=== PATIENT | female | born 1975 | race Caucasian/White ===

== ENCOUNTER → 2016-08-20 | Outpatient (CLI) | payer OTHER ==
[~2016-08-20] MED LIST: IBUP-232 PO
== END ==
LOC: HPND 08:37
PROVIDERS: ATTEND Obstetrics & Gynecology
DX: O09.511 Supervision of elderly primigravida, first trimester (principal); O35.1XX0 Maternal care for (suspected) chromosomal abnormality in fetus, not applicable or unspecified
CPT/HCPCS: 76811

== ENCOUNTER → 2016-09-17 | Outpatient (CLI) | payer OTHER | LOC: HPND 08:45 | PROVIDERS: ATTEND Obstetrics & Gynecology | DX: O09.512 Supervision of elderly primigravida, second trimester (principal); O35.1XX0 Maternal care for (suspected) chromosomal abnormality in fetus, not applicable or unspecified; Z3A.22 22 weeks gestation of pregnancy | CPT/HCPCS: 76816; 76825; 76827; 93325 ==

== ENCOUNTER 2017-01-17 16:58 | Inpatient (IN) | payer OTHER ==
[2017-01-17] VITALS (8 sets, daily range): BP systolic 124–126; BP diastolic 65–70; PULSE 89; RESP 16–18; TEMP 97.8–98.7
[2017-01-17 18:09] LABS: AUTOMATED NEUTROPHIL # 8.6 TH/MM3 (1.8-7.7); BASOPHIL % 0.3 % (0.0-2.0); EOSINOPHIL # 0.2 TH/MM3 (0-0.4); EOSINOPHIL % 2.1 % (0.0-4.0); HEMATOCRIT 37.6 % (35.0-46.0); HEMO FLAGS DIFF FINAL; LYMPH % 17.2 % (9.0-44.0); MEAN CELL VOLUME 90.6 FL (80.0-100.0); MEAN CORPUSCULAR HEMOGLOBIN 30.4 PG (27.0-34.0); MEAN CORPUSCULAR HGB CONC 33.6 % (32.0-36.0); MONO % 5.5 % (0.0-8.0); NEUT % 74.9 % (16.0-70.0); PLATELET COUNT 293 TH/MM3 (150-450); RED BLOOD COUNT 4.15 MIL/MM3 (4.00-5.30); RED CELL DISTRIBUTION WIDTH 13.3 % (11.6-17.2); WHITE BLOOD COUNT 11.5 TH/MM3 (4.0-11.0)
[2017-01-17 18:12] LABS: BLOOD, URINE NEG (NEG); COMMENT (UR) CULT NOT INDICATED; CULTURE IF INDICATED CULT NOT INDICATED; GLUCOSE,URINE NEG (NEG); HYALINE CAST, URINE 1 /lpf (RARE); KETONE, URINE NEG (NEG); NITRITE,URINE NEG (NEG); SQUAMOUS EPITHELIAL CELL URINE 5 /hpf (0-5); URINE COLOR LIGHT-YELLOW (YELLW/STRAW)
[2017-01-17] MEDS ORDERED: LACTATED RINGER'S 1000 ML BOLUS IV PRN (18:15)
[2017-01-17] MEDS ORDERED: NS 500 ML BOLUS IV PRN (18:15)
[2017-01-17] MEDS ORDERED: CITRIC ACID-SODIUM CITRATE LIQ 30 ML UDC PO SCH (18:15)
[2017-01-17] MEDS ORDERED: MINERAL OIL 10 ML VIAL TOPICAL PRN (18:15)
[2017-01-17] MEDS ORDERED: OXYTOCIN 30 UNITS 500ML PREMIX IV ONE (18:15)
[2017-01-17] MEDS ORDERED: NS 1000 ML IV PRN (18:15)
[2017-01-17] MEDS ORDERED: LIDOCAINE HCL 1% 50 ML VIAL I-DERMAL PRN (18:15)
[2017-01-17] MEDS ORDERED: LIDOCAINE HCL 1% 50 ML VIAL INFIL PRN (18:15)
[2017-01-17] MEDS: LACTATED RINGER'S 1000 ML IV SCH (18:17)
[2017-01-17] MEDS ORDERED: DINOPROSTONE 10 MG INSERT - REMOVE AT 0600 VAGINAL ONE (19:00)
[2017-01-17] MEDS ORDERED: LACTATED RINGER'S 1000 ML INJ 1,000 ML IV SCH (19:00)
[2017-01-18] VITALS (51 sets, daily range): BP systolic 98–138; BP diastolic 47–97; PULSE 77–132; RESP 16–20; TEMP 97.8–98.7; O2SAT 97–100
[2017-01-18] MEDS: LACTATED RINGER'S 1000 ML IV SCH ×3 (03:16→18:15)
[2017-01-18] MEDS ORDERED: OXYTOCIN 30 UNITS/NS 500ML PREMIX IV SCH (06:30)
[2017-01-18] MEDS ORDERED: ePHEDrine/NS 25 MG/5 ML SYR ONE (10:27)
[2017-01-18] MEDS ORDERED: fentaNYL 2MCG-BUPIV 0.125% INJ 100 ML ONE (10:27)
--- NOTE | 2017-01-18 10:32 | PD.LABORPN ---
Subjective Subjective pt uncomfortable with contractions. Objective Vital Signs Vital Signs Date Time Temp Pulse Resp B/P Pulse Ox O2 Delivery O2 Flow Rate FiO2 01/18/17 10:01 77 120/57 01/18/17 09:31 79 102/52 01/18/17 09:15 78 119/60 01/18/17 09:10 94 103/49 01/18/17 08:01 91 138/70 01/18/17 07:41 80 128/60 01/18/17 07:39 83 125/70 01/18/17 07:15 93 116/56 01/18/17 06:53 91 01/18/17 06:53 121/61 01/18/17 06:38 98.7 20 01/18/17 04:30 18 01/18/17 03:43 18 Objective Pelvic Exam: Cervix: [-] Dilatation: [-] 3 Effacement: [-] 90 Station: [-] -2 Presentation: [-] vtx Membranes: [ ruptured] Uterine Contractions: [-] FHT's: Category: [-] 1 Baseline: [-] 140s Reactive: [-] yes Variability: [-] Decels: [-] Assessment/Plan Problem List: (1) Plan: AROM cont pit GBS neg for epidural Ai Welch MD Jan 18, 2017 10:32
[2017-01-18] MEDS ORDERED: PANTOPRAZOLE SODIUM 40 MG VIAL IV PUSH ONE (14:00)
[2017-01-18] MEDS ORDERED: WITCH HAZEL 50%/GLYCERIN 12.5% 40 PAD JAR TOPICAL PRN (16:00)
[2017-01-18] MEDS ORDERED: ACETAMINOPHEN 325 MG TAB PO PRN (16:00)
[2017-01-18] MEDS ORDERED: ALUMINUM/MAGNESIUM/SIMETH 30 ML CUP PO PRN (16:00)
[2017-01-18] MEDS ORDERED: BENZOCAINE 20% TOPICAL SPRAY 60 ML CAN TOPICAL PRN (16:00)
[2017-01-18] MEDS ORDERED: SODIUM CHLORIDE 0.9% FLUSH 10 ML FLUSH IV FLUSH PRN (16:00)
[2017-01-18] MEDS ORDERED: OXYTOCIN 10 UNIT/ML AMP XX PRN (16:00)
[2017-01-18] MEDS ORDERED: DIPHTH/TETANUS/ACEL PERTUSSIS (BOOSTER) 0.5 ML VIAL/PFS IM ONE (16:00)
[2017-01-18] MEDS ORDERED: ZOLPIDEM TARTRATE 5 MG TAB PO PRN (16:00)
[2017-01-18] MEDS ORDERED: oxyCODONE/ACETAMINOPHEN 5 MG/325 MG TAB PO PRN ×2 (16:00)
[2017-01-18] MEDS ORDERED: OXYTOCIN 30 UNITS-500ML PREMIX 500 ML IV ONE (16:00)
[2017-01-18] MEDS ORDERED: ONDANSETRON ODT 4 MG TAB PO PRN (16:00)
[2017-01-18] MEDS ORDERED: traMADol HCL 50 MG TAB PO PRN (16:00)
[2017-01-18] MEDS ORDERED: MEASLES, MUMPS, RUBELLA VACCINE 0.5 ML VIAL SQ ONE (16:00)
--- NOTE | 2017-01-18 16:02 | PD.OB.DELI ---
Delivery Date: Jan 18, 2017 Anesthesia: Epidural Episiotomy: None Vaginal Delivery: Normal, Spontaneous Presentation: Occiput anterior Nuchal Cord: x1 Delayed cord clamping (45 sec): Yes Infant: Male One Minute : 8 Five Minute : 9 Weight: 7-13 Placenta: Spontaneous delivery, Intact, 3 vessel cord Laceration: Perineal laceration, 2 deg (repaired with 2-0 chromic in usual fashion) Ai Welch MD Jan 18, 2017 16:01
[2017-01-18] MEDS ORDERED: SODIUM CHLORIDE 0.9% FLUSH 10 ML FLUSH IV FLUSH SCH (21:00)
[2017-01-19] MEDS: DOCUSATE SODIUM 50 MG/SENNA 8.6 MG TAB PO PRN (03:16)
[2017-01-19] MEDS: IBUPROFEN 600 MG TAB PO PRN ×4 (03:17→22:39)
[2017-01-19 04:00] VITALS: PULSE 96; RESP 18
[2017-01-19] MEDS: LACTATED RINGER'S 1000 ML IV SCH (07:17)
[2017-01-19 08:50] VITALS: BP 113/72; PULSE 89; RESP 20; TEMP 97.9
--- NOTE | 2017-01-19 11:44 | HHI.OB ---
Subjective Post Day: 1 Remarks pain controlled, mod lochia, emmanuel po, +void/flatus Objective Vitals/I&O Vital Signs Date Time Temp Pulse Resp B/P Pulse Ox O2 Delivery O2 Flow Rate FiO2 01/19/17 08:50 97.9 89 20 113/72 01/19/17 04:00 96 18 01/18/17 23:52 16 01/18/17 20:00 98.5 116 20 126/80 01/18/17 18:10 98.3 110 18 101/80 01/18/17 17:15 97.8 18 01/18/17 17:01 97 114/93 01/18/17 17:00 109 18 01/18/17 17:00 109 01/18/17 16:46 122 111/79 01/18/17 16:35 20 01/18/17 16:32 100 01/18/17 16:32 100 99/52 01/18/17 16:30 18 01/18/17 16:16 105 01/18/17 16:16 132 111/73 01/18/17 16:07 98.3 01/18/17 16:01 18 01/18/17 16:00 99 115/97 01/18/17 15:45 18 01/18/17 15:31 106 113/62 01/18/17 15:01 95 121/59 01/18/17 14:48 98.1 01/18/17 14:31 90 121/67 01/18/17 14:10 115 105/49 01/18/17 13:31 100 117/77 01/18/17 13:01 97.9 18 01/18/17 13:01 109 98/57 01/18/17 12:31 112 115/48 01/18/17 12:23 16 01/18/17 12:05 18 01/18/17 12:01 108 137/90 Objective Remarks GENERAL: Well-nourished, well-developed patient. CARDIOVASCULAR: Regular rate and rhythm without murmurs, gallops, or rubs. RESPIRATORY: Breath sounds equal bilaterally. No accessory muscle use. ABDOMEN/GI: Abdomen soft, non-tender. Fundus: Firm, non-tender at umbilicus. GENITOURINARY: Light to moderate bleeding. EXTREMITIES: No cyanosis or edema, non-tender, without signs of DVT. Medications and IVs Current Medications Medications (Trade) Dose Ordered Sig/Lori Route Start Time Stop Time Status Last Admin Lactated Ringer's 1,000 ml @ 125 mls/hr Q8H IV 01/17/17 18:15 01/18/17 10:41 Lactated Ringer's 1,000 ml @ 3,000 mls/hr BOLUS PRN IV 01/17/17 18:15 Sodium Chloride 500 ml @ 1,000 mls/hr BOLUS PRN IV 01/17/17 18:15 01/18/17 06:57 (NS 1000 ml Inj) 1,000 ml @ 100 mls/hr Q10H PRN IV 01/17/17 18:15 (fentaNYL INJ) 50 mcg Q1H PRN IV PUSH 01/17/17 18:15 01/17/17 18:17 (fentaNYL INJ) 100 mcg Q1H PRN IV PUSH 01/17/17 18:15 01/18/17 10:00 Mineral Oil 10 ml 10 ml UNSCH PRN TOPICAL 01/17/17 18:15 (Pitocin 30 Units-NS 500 ml Premix) 500 ml @ 0 mls/hr TITRATE IV 01/18/17 06:30 (NS Flush) 2 ml BID IV FLUSH 01/18/17 21:00 (NS Flush) 2 ml UNSCH PRN IV FLUSH 01/18/17 16:00 (Tylenol) 650 mg Q4H PRN PO 01/18/17 16:00 (Motrin) 600 mg Q6H PRN PO 01/18/17 16:00 01/19/17 10:15 (Percocet 5-325 Mg) 1 tab Q4H PRN PO 01/18/17 16:00 (Percocet 5-325 Mg) 2 tab Q4H PRN PO 01/18/17 16:00 (Americaine 20% Top Spr) 1 spray Q4H PRN TOPICAL 01/18/17 16:00 01/18/17 18:24 (Tucks Pads) 1 applic QID PRN TOPICAL 01/18/17 16:00 01/18/17 18:24 (Sophie-Colace) 2 tab Q12H PRN PO 01/18/17 16:00 01/19/17 03:16 (Ambien) 5 mg HS PRN PO 01/18/17 16:00 (Mag-Al Plus Susp Liq) 15 ml Q8H PRN PO 01/18/17 16:00 (Zofran Odt) 4 mg Q6H PRN PO 01/18/17 16:00 (Ultram) 50 mg Q4H PRN PO 01/18/17 16:00 Assessment/Plan Problem List: (1) Spontaneous vaginal delivery Plan: routine pp care d/c home in Ai Andujar MD Jan 19, 2017 11:44
[2017-01-19] MEDS ORDERED: IBUP-232 PO (11:47)
--- NOTE | 2017-01-19 11:48 | HHI.DCPOC ---
Discharge Care Plan Diagnosis: (1) Spontaneous vaginal delivery Your Health Problems Are: Vaginal delivery Report Symptoms to Your Doctor -Temperature above 100.5 degrees -Redness, of incision or excessive or foul smelling drainage -Unusual pain or calf pain -Increased vaginal bleeding -Painful or difficulty urinating -Feelings of extreme sadness or anxiety after 2 weeks Goals to Promote Your Health * To prevent worsening of your condition and complications * To maintain your health at the optimal level Directions to Meet Your Goals Take your medications as prescribed Follow your dietary instruction Follow activity as directed Ensure plenty of rest for recovery Drink fluids for hydration Keep your appointments as scheduled Take your immunizations and boosters as scheduled If your symptoms worsen call your PCP, if no PCP go to Urgent Care Center or Emergency Room Smoking is Dangerous to Your Health. Avoid second hand smoke Call the 24-hour crisis hotline for domestic abuse at Ai Welch MD Jan 19, 2017 11:48
[2017-01-19 20:00] VITALS: BP 115/65; PULSE 80; RESP 18; TEMP 97.8
[2017-01-20 08:00] VITALS: BP 113/62; PULSE 83; RESP 16; TEMP 98.1
[2017-01-20] MEDS: DOCUSATE SODIUM 50 MG/SENNA 8.6 MG TAB PO PRN (11:58)
== END 2017-01-20 12:40 | disposition home or self-care (01) | DRG 775 ==
LOC: H2EB 16:58 → H1EA 01-18 17:44
PROVIDERS: ADMIT Obstetrics & Gynecology; ATTEND Obstetrics & Gynecology
PROC: 10E0XZZ Delivery of Products of Conception, External Approach (ICD-10-PCS; principal; 2017-01-17)
PROC: 0KQM0ZZ Repair Perineum Muscle, Open Approach (ICD-10-PCS; 2017-01-17)
PROC: 3E0R3CZ (ICD-10-PCS; 2017-01-17)
PROC: 00HU33Z Insertion of Infusion Device into Spinal Canal, Percutaneous Approach (ICD-10-PCS; 2017-01-17)
PROC: 10907ZC Drainage of Amniotic Fluid, Therapeutic from Products of Conception, Via Natural or Artificial Opening (ICD-10-PCS; 2017-01-17)
DX: O70.1 Second degree perineal laceration during delivery (principal); Z37.0 Single live birth; O69.81X0 Labor and delivery complicated by cord around neck, without compression, not applicable or unspecified; Z3A.39 39 weeks gestation of pregnancy
CPT/HCPCS: 59025; 81001; 85025; 86900; 86901; C9113; J2590; J3010; J7040; J7120